=== PATIENT | male | born 1960 | race American Indian/Alaskan Native ===

== ENCOUNTER 2018-06-18 09:48 | Inpatient (IN) | payer SELFPAY ==
[~2018-06-18] VITALS: Ht 170.2 cm; Wt 72.6 kg
[2018-06-18] MEDS ORDERED: MethylPREDNISolone SOD SUCC 125 MG/2 ML VIAL IVP ONE ×2 (10:00→21:30)
[2018-06-18] MEDS ORDERED: IPRATROPIUM BROMIDE 0.5 MG/2.5 ML NEB SOLUTION NEB ONE (10:00)
[2018-06-18] MEDS ORDERED: LORazepam 2 MG/ML VIAL IVP ONE ×2 (10:00→11:30)
[2018-06-18] MEDS ORDERED: ALBUTEROL SULFATE 5 MG/ML 20 ML NEB SOLN [BULK] NEB ONE (10:00)
[2018-06-18] MEDS ORDERED: LORazepam 2 MG/ML VIAL ONE (10:09)
[2018-06-18] MEDS ORDERED: IPRAHFA IH (10:20)
[2018-06-18 10:43] LABS: BASOPHILS % (AUTO) 0.5 % (0.0-2.0); EOSINOPHILS % (AUTO) 0.3 % (1.0-6.0); HEMATOCRIT 41.8 % (41-53); HEMOGLOBIN 14.5 g/dL (13.5-17.5); LYMPHOCYTES # (AUTO) 1.2 K/uL (1.0-4.8); MEAN CORPUSCULAR HEMOGLOBIN 32.3 pg (26.0-34.0); MEAN CORPUSCULAR HGB CONC 34.7 G/dL (31.0-37.0); MEAN CORPUSCULAR VOLUME 93 fL (80-100); MONOCYTES # (AUTO) 0.9 K/uL (0.1-1.0); MONOCYTES % (AUTO) 8.2 % (2.0-9.0); NEUTROPHILS # (AUTO) 9.1 K/uL (1.8-7.7); PLATELET COUNT (AUTO) 285 K/uL (150-450); RED BLOOD CELL COUNT(AUTO) 4.49 MIL/uL (4.50-5.90); RED CELL DISTRIBUTION WIDTH 15.5 % (11.5-14.5)
[2018-06-18 10:54] LABS: ANION GAP 10 mmol/L (8-16); CALCIUM, TOTAL 9.3 mg/dL (8.8-10.5); CARBON DIOXIDE 26 mmol/L (22-29); CHLORIDE 103 mmol/L (98-107); CREATININE 1.12 mg/dL (0.60-1.30); GLOMERULAR FILTR. RATE CALC > 60 mL/min (>60); GLUCOSE,RANDOM 168 mg/dL (70-110); POTASSIUM 3.1 mmol/L (3.5-5.1); SODIUM SERUM 139 mmol/L (136-145); UREA NITROGEN, BLOOD 19 mg/dL (7-18)
[2018-06-18 11:01] LABS: ALANINE AMINOTRANSFERASE 33 U/L (12-78); ALBUMIN 3.4 g/dL (3.4-5.0); ALKALINE PHOSPHATASE 175 U/L (46-116); ASPARTATE AMINOTRANSFERASE 26 U/L (15-37); BILIRUBIN,TOTAL 0.5 mg/dL (0.1-1.0); CREATINE KINASE, TOTAL ONLY 39 U/L (39-308); TOTAL PROTEIN, SERUM 7.5 g/dL (6.4-8.2)
[2018-06-18 11:38] LABS: B-TYPE NATRIURETIC PEPTIDE 809 pg/mL (0-100)
[2018-06-18] MEDS ORDERED: SODIUM CHLORIDE 0.9% 1,000 ML IV ONE (11:45)
[2018-06-18] MEDS ORDERED: IOVERSOL 350 MG/ML 100 ML VIAL ONE (11:50)
[2018-06-18] MEDS ORDERED: SODIUM CHLORIDE 0.9% 100 ML ONE (11:50)
[2018-06-18] MEDS ORDERED: ADENOSINE 3 MG/ML 2 ML VIAL IVP ONE ×2 (12:04→13:30)
[2018-06-18 12:28] LABS: SOURCE, BLOOD GAS ARTERIAL; TEMPERATURE, FAHRENHEIT, BG 98.6 FAHREN (96.0-98.6)
[2018-06-18 12:32] LABS: ABG A-A DIFF O2 168.3 mmHg (10-20.0); ABG BASE EXCESS -4.1 mmol/L (-2.0-3.0); ABG CARBOXYHEMOGLOBIN 2.2 % (0.0-1.5); ABG HCO3 22.3 mmol/L (22.0-26.0); ABG METHEMOGLOBIN 0.5 % (0.0-1.5); ABG OXYGEN CONTENT 16.8 mL/dL (15.0-23.0); ABG OXYGEN SATURATION 91.2 % (95.0-98.0); ABG OXYHEMOGLOBIN 88.7 % (94.0-100.0); ABG PCO2 25 mmHg (35-45); ABG PH 7.503 (7.35-7.450); ABG TOTAL HEMOGLOBIN 13.5 G/dL (12.0-18.0); PO2, ARTERIAL BG 59.6 mmHg (84.0-92.0)
[2018-06-18 12:33] LABS: O2 DEVICE,BLOOD GAS CANNULA (ROOM AIR); SITE, BLOOD GAS RT RADIAL
[2018-06-18] MEDS ORDERED: 0.9% SODIUM CHLORIDE 10 ML SYRINGE IVP PRN ×2 (13:00→23:00)
[2018-06-18] MEDS ORDERED: LORazepam 2 MG TABLET PO PRN (13:00)
[2018-06-18] MEDS ORDERED: ACETAMINOPHEN 325 MG TABLET PO PRN ×2 (13:00→23:00)
[2018-06-18] MEDS ORDERED: OXYGEN THERAPY IH SCH (13:00)
[2018-06-18] MEDS ORDERED: ONDANSETRON HCL 4 MG/2 ML VIAL IVP PRN ×2 (13:00→23:00)
[2018-06-18 16:43] VITALS: BP 134/71
[2018-06-18] MEDS ORDERED: POTASSIUM CHLORIDE 20 MEQ ER TABLET PO PRN (17:30)
[2018-06-18] MEDS ORDERED: POTASSIUM CHL 10 MEQ/WATER 50 ML IV PRN (17:30)
[2018-06-18 20:00] VITALS: BP 139/72
[2018-06-18 20:23] VITALS: BP 139/75
[2018-06-18] MEDS ORDERED: IPRATROPIUM BROMIDE 0.5 MG/2.5 ML NEB SOLUTION NEB PRN (21:30)
[2018-06-18] MEDS: ZOLPIDEM TARTRATE 10 MG TABLET PO PRN (21:44)
[2018-06-18] MEDS ORDERED: 0.9% SODIUM CHLORIDE 5 ML NEB SOLUTION NEB ONE (21:48)
[2018-06-18] MEDS: ALBUTEROL SULFATE 2.5 MG/0.5 ML NEB SOLUTION NEB PRN (21:52)
[2018-06-18] MEDS ORDERED: OxyCODONE HCL/ACETAMINOPHEN 5-325 MG TABLET PO PRN (23:00)
[2018-06-18] MEDS ORDERED: MAGNESIUM HYDROXIDE SUSPENSION 30 ML UDCUP PO PRN (23:00)
[2018-06-18 23:16] VITALS: BP 146/80
[2018-06-19] MEDS: ALBUTEROL SULFATE 2.5 MG/0.5 ML NEB SOLUTION NEB SCH ×4 (02:00→19:11)
[2018-06-19] MEDS: IPRATROPIUM BROMIDE 0.5 MG/2.5 ML NEB SOLUTION NEB SCH ×4 (02:00→19:11)
[2018-06-19 04:08] VITALS: BP 160/91
[2018-06-19] MEDS: OxyCODONE HCL/ACETAMINOPHEN 5-325 MG TABLET PO PRN ×2 (06:01→20:42)
[2018-06-19] MEDS: MethylPREDNISolone SOD SUCC 125 MG/2 ML VIAL IVP SCH ×2 (06:01→15:47)
[2018-06-19 06:29] LABS: BASOPHILS % (AUTO) 0.1 % (0.0-2.0); EOSINOPHILS % (AUTO) 0 % (1.0-6.0); HEMATOCRIT 35.7 % (41-53); HEMOGLOBIN 12.5 g/dL (13.5-17.5); LYMPHOCYTES # (AUTO) 0.3 K/uL (1.0-4.8); LYMPHOCYTES % (AUTO) 2.9 % (22.0-44.0); MEAN CORPUSCULAR HEMOGLOBIN 32.3 pg (26.0-34.0); MEAN CORPUSCULAR HGB CONC 34.9 G/dL (31.0-37.0); MEAN CORPUSCULAR VOLUME 93 fL (80-100); MONOCYTES # (AUTO) 0.2 K/uL (0.1-1.0); MONOCYTES % (AUTO) 2.1 % (2.0-9.0); NEUTROPHILS # (AUTO) 8.3 K/uL (1.8-7.7); PLATELET COUNT (AUTO) 225 K/uL (150-450); RED BLOOD CELL COUNT(AUTO) 3.86 MIL/uL (4.50-5.90); RED CELL DISTRIBUTION WIDTH 15.6 % (11.5-14.5)
[2018-06-19 06:44] LABS: ALANINE AMINOTRANSFERASE 37 U/L (12-78); ALKALINE PHOSPHATASE 144 U/L (46-116); ANION GAP 8 mmol/L (8-16); ASPARTATE AMINOTRANSFERASE 26 U/L (15-37); BILIRUBIN,TOTAL 0.3 mg/dL (0.1-1.0); CALCIUM, TOTAL 8.7 mg/dL (8.8-10.5); CARBON DIOXIDE 23 mmol/L (22-29); CHLORIDE 103 mmol/L (98-107); CREATININE 0.77 mg/dL (0.60-1.30); GLOMERULAR FILTR. RATE CALC > 60 mL/min (>60); GLUCOSE,RANDOM 194 mg/dL (70-110); POTASSIUM 4.1 mmol/L (3.5-5.1); SODIUM SERUM 134 mmol/L (136-145); TOTAL PROTEIN, SERUM 6.9 g/dL (6.4-8.2); UREA NITROGEN, BLOOD 17 mg/dL (7-18)
[2018-06-19 06:45] LABS: NEUTROPHILS % (AUTO) 94.9 % (40.0-70.0)
[2018-06-19] MEDS ORDERED: LORazepam 2 MG TABLET PO PRN (07:00)
[2018-06-19 07:40] VITALS: BP 164/84
[2018-06-19] MEDS: PANTOPRAZOLE SODIUM 40 MG/VIAL IVP SCH (08:43)
[2018-06-19] MEDS: DOCUSATE SODIUM 100 MG CAPSULE PO SCH ×2 (08:43→20:42)
[2018-06-19] MEDS ORDERED: LORazepam 2 MG TABLET PO SCH (09:00)
[2018-06-19] MEDS: ChlordiazePOXIDE HCL 25 MG CAPSULE PO SCH ×4 (09:01→20:42)
[2018-06-19] MEDS: METOPROLOL SUCCINATE 25 MG ER TABLET PO SCH ×2 (09:01→20:42)
[2018-06-19] MEDS: ALBUTEROL SULFATE 2.5 MG/0.5 ML NEB SOLUTION NEB PRN (11:30)
[2018-06-19 11:32] VITALS: BP 157/84
[2018-06-19 15:52] VITALS: BP 148/79
[2018-06-19 20:03] VITALS: BP 162/93
[2018-06-19] MEDS: ZOLPIDEM TARTRATE 10 MG TABLET PO PRN (20:42)
[2018-06-20] VITALS (7 sets, daily range): BP systolic 155–163; BP diastolic 85–98
[2018-06-20] MEDS: MethylPREDNISolone SOD SUCC 125 MG/2 ML VIAL IVP SCH ×4 (00:12→23:46)
[2018-06-20] MEDS: ALBUTEROL SULFATE 2.5 MG/0.5 ML NEB SOLUTION NEB SCH ×4 (02:11→19:47)
[2018-06-20] MEDS: IPRATROPIUM BROMIDE 0.5 MG/2.5 ML NEB SOLUTION NEB SCH ×4 (02:12→19:47)
[2018-06-20 06:27] LABS: BASOPHILS % (AUTO) 0.1 % (0.0-2.0); EOSINOPHILS % (AUTO) 0 % (1.0-6.0); HEMATOCRIT 35.9 % (41-53); HEMOGLOBIN 12.4 g/dL (13.5-17.5); LYMPHOCYTES # (AUTO) 0.2 K/uL (1.0-4.8); LYMPHOCYTES % (AUTO) 2.1 % (22.0-44.0); MEAN CORPUSCULAR HEMOGLOBIN 32.9 pg (26.0-34.0); MEAN CORPUSCULAR HGB CONC 34.6 G/dL (31.0-37.0); MEAN CORPUSCULAR VOLUME 95 fL (80-100); MONOCYTES # (AUTO) 0.3 K/uL (0.1-1.0); MONOCYTES % (AUTO) 3.2 % (2.0-9.0); NEUTROPHILS # (AUTO) 9.7 K/uL (1.8-7.7); PLATELET COUNT (AUTO) 221 K/uL (150-450); RED BLOOD CELL COUNT(AUTO) 3.77 MIL/uL (4.50-5.90)
[2018-06-20 06:37] LABS: NEUTROPHILS % (AUTO) 94.6 % (40.0-70.0)
[2018-06-20 07:19] LABS: ALANINE AMINOTRANSFERASE 42 U/L (12-78); ALBUMIN 2.9 g/dL (3.4-5.0); ALKALINE PHOSPHATASE 126 U/L (46-116); ANION GAP 6 mmol/L (8-16); ASPARTATE AMINOTRANSFERASE 25 U/L (15-37); BILIRUBIN,TOTAL 0.2 mg/dL (0.1-1.0); CALCIUM, TOTAL 8.7 mg/dL (8.8-10.5); CARBON DIOXIDE 25 mmol/L (22-29); CHLORIDE 104 mmol/L (98-107); CREATININE 0.68 mg/dL (0.60-1.30); GLOMERULAR FILTR. RATE CALC > 60 mL/min (>60); GLUCOSE,RANDOM 172 mg/dL (70-110); POTASSIUM 4.7 mmol/L (3.5-5.1); SODIUM SERUM 135 mmol/L (136-145); TOTAL PROTEIN, SERUM 6.5 g/dL (6.4-8.2); UREA NITROGEN, BLOOD 20 mg/dL (7-18)
[2018-06-20] MEDS: PANTOPRAZOLE SODIUM 40 MG/VIAL IVP SCH (08:35)
[2018-06-20] MEDS: ChlordiazePOXIDE HCL 25 MG CAPSULE PO SCH ×4 (08:45→20:10)
[2018-06-20] MEDS: FOLIC ACID 1 MG TABLET PO SCH (08:45)
[2018-06-20] MEDS: THIAMINE HCL 100 MG TABLET PO SCH (08:45)
[2018-06-20] MEDS: METOPROLOL SUCCINATE 25 MG ER TABLET PO SCH ×2 (08:45→20:09)
[2018-06-20] MEDS: DOCUSATE SODIUM 100 MG CAPSULE PO SCH ×2 (08:45→20:09)
[2018-06-20] MEDS: MULTIVITAMINS WITH MINERALS, THERAPEUTIC TABLET PO SCH (08:45)
[2018-06-20] MEDS: ATORVASTATIN CALCIUM 20 MG TABLET PO SCH (09:20)
[2018-06-20] MEDS: AmLODIPine BESYLATE 5 MG TABLET PO SCH ×2 (09:20→20:09)
[2018-06-20] MEDS: ASPIRIN 81 MG EC TABLET PO SCH (09:20)
[2018-06-21] VITALS (8 sets, daily range): BP systolic 134–170; BP diastolic 76–98
[2018-06-21] MEDS: ALBUTEROL SULFATE 2.5 MG/0.5 ML NEB SOLUTION NEB SCH ×4 (01:55→19:57)
[2018-06-21] MEDS: IPRATROPIUM BROMIDE 0.5 MG/2.5 ML NEB SOLUTION NEB SCH ×4 (01:55→19:57)
[2018-06-21 06:17] LABS: BASOPHILS % (AUTO) 0.1 % (0.0-2.0); EOSINOPHILS % (AUTO) 0 % (1.0-6.0); HEMATOCRIT 35.7 % (41-53); HEMOGLOBIN 12.2 g/dL (13.5-17.5); LYMPHOCYTES # (AUTO) 0.2 K/uL (1.0-4.8); LYMPHOCYTES % (AUTO) 2.2 % (22.0-44.0); MEAN CORPUSCULAR HEMOGLOBIN 32.5 pg (26.0-34.0); MEAN CORPUSCULAR HGB CONC 34.1 G/dL (31.0-37.0); MEAN CORPUSCULAR VOLUME 95 fL (80-100); MONOCYTES # (AUTO) 0.4 K/uL (0.1-1.0); MONOCYTES % (AUTO) 4.6 % (2.0-9.0); NEUTROPHILS # (AUTO) 7.4 K/uL (1.8-7.7); PLATELET COUNT (AUTO) 246 K/uL (150-450); RED BLOOD CELL COUNT(AUTO) 3.76 MIL/uL (4.50-5.90); RED CELL DISTRIBUTION WIDTH 15.6 % (11.5-14.5)
[2018-06-21 06:19] LABS: NEUTROPHILS % (AUTO) 93.1 % (40.0-70.0)
[2018-06-21 06:31] LABS: ALANINE AMINOTRANSFERASE 88 U/L (12-78); ALBUMIN 2.8 g/dL (3.4-5.0); ALKALINE PHOSPHATASE 155 U/L (46-116); ANION GAP 5 mmol/L (8-16); ASPARTATE AMINOTRANSFERASE 56 U/L (15-37); BILIRUBIN,TOTAL 0.2 mg/dL (0.1-1.0); CALCIUM, TOTAL 8.7 mg/dL (8.8-10.5); CARBON DIOXIDE 29 mmol/L (22-29); CHLORIDE 102 mmol/L (98-107); CREATININE 0.76 mg/dL (0.60-1.30); GLOMERULAR FILTR. RATE CALC > 60 mL/min (>60); GLUCOSE,RANDOM 173 mg/dL (70-110); POTASSIUM 4.5 mmol/L (3.5-5.1); SODIUM SERUM 136 mmol/L (136-145); TOTAL PROTEIN, SERUM 6.4 g/dL (6.4-8.2); UREA NITROGEN, BLOOD 23 mg/dL (7-18)
[2018-06-21] MEDS ORDERED: LORazepam 1 MG TABLET PO PRN (07:00)
[2018-06-21] MEDS: MethylPREDNISolone SOD SUCC 125 MG/2 ML VIAL IVP SCH ×3 (08:01→23:51)
[2018-06-21] MEDS: DOCUSATE SODIUM 100 MG CAPSULE PO SCH ×2 (08:02→20:17)
[2018-06-21] MEDS: THIAMINE HCL 100 MG TABLET PO SCH (08:02)
[2018-06-21] MEDS: ASPIRIN 81 MG EC TABLET PO SCH (08:02)
[2018-06-21] MEDS: FOLIC ACID 1 MG TABLET PO SCH (08:03)
[2018-06-21] MEDS: ATORVASTATIN CALCIUM 20 MG TABLET PO SCH (08:03)
[2018-06-21] MEDS: ChlordiazePOXIDE HCL 25 MG CAPSULE PO SCH ×4 (08:03→20:17)
[2018-06-21] MEDS: MULTIVITAMINS WITH MINERALS, THERAPEUTIC TABLET PO SCH (08:04)
[2018-06-21] MEDS: METOPROLOL SUCCINATE 25 MG ER TABLET PO SCH (08:05)
[2018-06-21] MEDS: PANTOPRAZOLE SODIUM 40 MG/VIAL IVP SCH (08:05)
[2018-06-21] MEDS: AmLODIPine BESYLATE 5 MG TABLET PO SCH (08:06)
[2018-06-21] MEDS ORDERED: CARVEDILOL PHOSPHATE 20 MG CR CAPSULE PO SCH (09:00)
[2018-06-21] MEDS: CARVEDILOL PHOSPHATE 10 MG CR CAPSULE PO SCH (09:00)
[2018-06-21] MEDS ORDERED: LORazepam 1 MG TABLET PO SCH (09:00)
[2018-06-21] MEDS: GuaiFENesin/CODEINE [SUGAR FREE] 200-20MG/10 ML SYRUP UDCUP PO PRN ×2 (13:30→17:04)
[2018-06-22] MEDS: GuaiFENesin/CODEINE [SUGAR FREE] 200-20MG/10 ML SYRUP UDCUP PO PRN (00:26)
[2018-06-22] MEDS: IPRATROPIUM BROMIDE 0.5 MG/2.5 ML NEB SOLUTION NEB SCH ×3 (01:51→13:07)
[2018-06-22] MEDS: ALBUTEROL SULFATE 2.5 MG/0.5 ML NEB SOLUTION NEB SCH ×2 (01:51→07:49)
[2018-06-22 05:09] VITALS: BP 170/88
[2018-06-22 05:55] LABS: BASOPHILS % (AUTO) 0.1 % (0.0-2.0); EOSINOPHILS % (AUTO) 0 % (1.0-6.0); HEMATOCRIT 36.6 % (41-53); HEMOGLOBIN 12.4 g/dL (13.5-17.5); LYMPHOCYTES # (AUTO) 0.2 K/uL (1.0-4.8); LYMPHOCYTES % (AUTO) 2.5 % (22.0-44.0); MEAN CORPUSCULAR HEMOGLOBIN 32.2 pg (26.0-34.0); MEAN CORPUSCULAR VOLUME 95 fL (80-100); MONOCYTES # (AUTO) 0.3 K/uL (0.1-1.0); MONOCYTES % (AUTO) 4.7 % (2.0-9.0); NEUTROPHILS # (AUTO) 6.6 K/uL (1.8-7.7); PLATELET COUNT (AUTO) 250 K/uL (150-450); RED BLOOD CELL COUNT(AUTO) 3.86 MIL/uL (4.50-5.90); RED CELL DISTRIBUTION WIDTH 15.6 % (11.5-14.5)
[2018-06-22 06:17] LABS: NEUTROPHILS % (AUTO) 92.7 % (40.0-70.0)
[2018-06-22] MEDS ORDERED: LORazepam 1 MG TABLET PO PRN (07:00)
[2018-06-22 07:25] VITALS: BP 145/91
[2018-06-22 07:35] LABS: ALANINE AMINOTRANSFERASE 78 U/L (12-78); ALBUMIN 2.7 g/dL (3.4-5.0); ALKALINE PHOSPHATASE 138 U/L (46-116); ANION GAP 6 mmol/L (8-16); ASPARTATE AMINOTRANSFERASE 35 U/L (15-37); BILIRUBIN,TOTAL 0.2 mg/dL (0.1-1.0); CALCIUM, TOTAL 8.3 mg/dL (8.8-10.5); CARBON DIOXIDE 27 mmol/L (22-29); CHLORIDE 103 mmol/L (98-107); CREATININE 0.74 mg/dL (0.60-1.30); GLOMERULAR FILTR. RATE CALC > 60 mL/min (>60); GLUCOSE,RANDOM 172 mg/dL (70-110); POTASSIUM 4.4 mmol/L (3.5-5.1); SODIUM SERUM 136 mmol/L (136-145); UREA NITROGEN, BLOOD 23 mg/dL (7-18)
[2018-06-22] MEDS: PANTOPRAZOLE SODIUM 40 MG/VIAL IVP SCH (07:56)
[2018-06-22] MEDS: MULTIVITAMINS WITH MINERALS, THERAPEUTIC TABLET PO SCH (07:57)
[2018-06-22] MEDS: ChlordiazePOXIDE HCL 25 MG CAPSULE PO SCH (07:57)
[2018-06-22] MEDS: DOCUSATE SODIUM 100 MG CAPSULE PO SCH (07:58)
[2018-06-22] MEDS: THIAMINE HCL 100 MG TABLET PO SCH (07:58)
[2018-06-22] MEDS: FOLIC ACID 1 MG TABLET PO SCH (07:58)
[2018-06-22] MEDS: ATORVASTATIN CALCIUM 20 MG TABLET PO SCH (07:58)
[2018-06-22] MEDS: ASPIRIN 81 MG EC TABLET PO SCH (07:58)
[2018-06-22] MEDS: CARVEDILOL PHOSPHATE 10 MG CR CAPSULE PO SCH (07:59)
[2018-06-22] MEDS ORDERED: AmLODIPine BESYLATE 10 MG TABLET PO SCH (09:00)
[2018-06-22] MEDS ORDERED: CARVEDILOL PHOSPHATE 10 MG CR CAPSULE PO ONE (09:00)
[2018-06-22] MEDS ORDERED: PredniSONE 20 MG TABLET PO SCH (09:00)
[2018-06-22 11:20] VITALS: BP 149/76
[2018-06-22] MEDS ORDERED: NIFEdipine 60 MG ER TABLET PO ONE (15:00)
[2018-06-22 15:32] VITALS: BP 150/81
[2018-06-22] MEDS ORDERED: CARV40CR PO (16:31)
[2018-06-22] MEDS ORDERED: PROM5SYR2 PO (16:31)
[2018-06-22] MEDS ORDERED: IPRA4AER IH (16:32)
[2018-06-22] MEDS ORDERED: ALBU8HFA IH (16:33)
[2018-06-22] MEDS ORDERED: NIFE90TA38 PO (16:33)
[2018-06-22] MEDS ORDERED: ATOR20TA86 PO (16:34)
[2018-06-22] MEDS ORDERED: ASPI81 PO (16:34)
[2018-06-22] MEDS ORDERED: FOLI1 PO (16:35)
[2018-06-22] MEDS ORDERED: THIA1002I IM (16:36)
[2018-06-22] MEDS ORDERED: MULT-1203 PO (16:36)
[2018-06-22] MEDS ORDERED: PRED-284 PO ×5 (16:38→16:45)
[2018-06-22 17:30] VITALS: BP 145/75
[2018-06-22] MEDS ORDERED: ChlordiazePOXIDE HCL 25 MG CAPSULE PO SCH (21:00)
[2018-06-23] MEDS ORDERED: CARVEDILOL PHOSPHATE 10 MG CR CAPSULE PO SCH (09:00)
[2018-06-23] MEDS ORDERED: NIFEdipine 60 MG ER TABLET PO SCH (09:00)
== END 2018-06-22 18:00 | disposition home or self-care (01) | DRG 308 ==
LOC: EMS 09:49 → 5N 12:51
PROVIDERS: ADMIT Internal Medicine; ATTEND Internal Medicine
PROC: 5A2204Z Restoration of Cardiac Rhythm, Single (ICD-10-PCS; principal; 2018-06-18)
DX: I47.1 Supraventricular tachycardia (principal); J96.91 Respiratory failure, unspecified with hypoxia; J44.1 Chronic obstructive pulmonary disease with (acute) exacerbation; F10.239 Alcohol dependence with withdrawal, unspecified; I50.20 Unspecified systolic (congestive) heart failure; K55.1 Chronic vascular disorders of intestine; E27.9 Disorder of adrenal gland, unspecified; I70.1 Atherosclerosis of renal artery; F17.210 Nicotine dependence, cigarettes, uncomplicated; I11.0 Hypertensive heart disease with heart failure; Z59.0 Homelessness; Z82.49 Family history of ischemic heart disease and other diseases of the circulatory system; Z87.01 Personal history of pneumonia (recurrent); Z88.0 Allergy status to penicillin; I73.9 Peripheral vascular disease, unspecified
CPT/HCPCS: 71275; 82805; 83735; 84132; 93005; 93306; 94640; 96361; 96374; 96375; 99291; C9113; G0378; J0153; J2060; J2405; J2930; J7050